=== PATIENT | male | born 1985 | race Caucasian/White ===

== ENCOUNTER 2023-08-31 12:44 | Emergency (ER) | payer OTHER, SELFPAY ==
[2023-08-31 12:50] VITALS: BP 142/97; PULSE 89; RESP 16; TEMP 36.6; O2SAT 100
[2023-08-31 13:03] VITALS: BP 142/97; PULSE 89; RESP 16; TEMP 36.6; O2SAT 100
--- NOTE | 2023-08-31 13:09 | ED.GENADULT ---
HPI - General Adult General Chief complaint: Wound/Laceration Stated complaint: left thumb lac Source: patient Mode of arrival: ambulatory Limitations: no limitations History of Present Illness HPI narrative: Patient presents for evaluation of a laceration to the left thumb. He was cutting vinyl mina just [employer] when the knife cut his left thumb. Reports mild sharp pain in the affected area. No loss of range of motion. No paresthesias. He is right hand dominant. He denies a formal diagnosis of diabetes but recently had his blood sugar with a reading 256. No fever, chills, nausea, vomiting, purulent discharge. Wound continued to bleed so he came in for wound repair. Date of last tetanus 4 years ago. Related Data Allergies Allergy/AdvReac Type Severity Reaction Status Date / Time No Known Allergies Allergy Verified 08/31/23 12:52 Review of Systems Review of Systems: CONSTITUTIONAL: Denies fever, chills, or sweats. EYES: Denies visual changes, redness, or discharge. ENT: Denies rhinorrhea, congestion, sore throat, or otalgia. CARDIOVASCULAR: Denies chest pain, palpitations, or edema. RESPIRATORY: Denies cough or dyspnea. GASTROINTESTINAL: Denies abdominal pain, nausea, vomiting, or diarrhea. GENITOURINARY: Denies dysuria or hematuria. SKIN: Reports left thumb laceration MUSCULOSKELETAL: Reports pain in left thumb. Denies back pain or joint pain NEUROLOGIC: Denies headache, numbness, dizziness, or weakness. PSYCHIATRIC: Denies anxiety or depression. [facility] Past Medical History Medical History Hyperglycemia Surgical History Surgical History No pertinent past surgical history Family History Family History Mother Family history non-contributory Social History Social History Smoking status: Never smoker Substance use: never Living arrangements: with family Gender identity (if verbalized by the patient): Male Sexual Orientation (if Verbalized by the Patient): Straight or Heterosexual Spiritual care concerns: No Exam Narrative: GENERAL: Well-appearing, well-nourished, and in no acute distress. HEAD: Normocephalic, atraumatic. EYES: PERRLA and EOMI. ENT: Nares clear, no rhinorrhea or epistaxis. Mucous membranes moist. Oropharynx without tonsillar hypertrophy exudate or other lesions. Bilateral TMs pearly montgomery nonbulging NECK: Supple. No adenopathy or masses. No carotid bruits or JVD CHEST: Clear to auscultation. No respiratory distress. No wheezes rales or rhonchi HEART: Regular rate and rhythm. No murmur heard. Normal peripheral pulses. ABDOMEN: Soft, nontender, nondistended, normal active bowel sounds. EXTREMITIES: Normal range of motion. No edema. SKIN: Approximately 1.5 cm linear laceration in a transverse formation the distal phalanx of the left thumb on the palmar side of the digit NEURO: No focal deficits. Alert and oriented x3. PSYCH: Normal mood and affect. Course Course Emergency Course: This is a 37-year-old male who presented for evaluation of a laceration to the left thumb. Wound was thoroughly irrigated and closed with 3 sutures. Patient tolerated well. He is up-to-date on tetanus. His blood sugar here was above 200 so he meets criteria for diabetes based upon today's reading in conjunction with recent blood sugar checked with employer. He showed me his renal function and his phone which was normal. Through shared decision making opted to proceed with metformin. He will follow-up with his primary nine days from now. Advised on wound care. Monitor for signs of infection and go to the ER for worsening symptoms. Pt in agreement with plan of care. Level of Care: Express Care Visit Vital Signs Vital signs: Vital Signs Temper
[2023-08-31 13:20] LABS: Glucose Point of Care 239 mg/dl (65-105)
== END 2023-08-31 14:24 | disposition home or self-care (01) ==
PROVIDERS: Emergency Provider Nurse Practitioner
DX: S61.012A Laceration without foreign body of left thumb without damage to nail, initial encounter (principal); W26.0XXA Contact with knife, initial encounter; E11.9 Type 2 diabetes mellitus without complications
CPT/HCPCS: 12001; 82948; 99213; G0463